=== PATIENT | male | born 1980 | race Caucasian/White ===

== ENCOUNTER 2017-06-09 06:27 | Day surgery (SDC) | payer OTHER, SELFPAY ==
[2017-06-09 07:23] VITALS: BP 129/84; PULSE 72; RESP 14; TEMP 36; O2SAT 100; BMI 25.8
--- NOTE | 2017-06-09 07:59 | PCM.DC ---
You will use the following diet at home:: No restrictions Discharge Activity: Return to Normal Activity Call your doctor if your incision/area has: Increased Pain/ Swelling Allergies/Adverse Reactions: Allergies No Known Allergies Allergy (Verified 06/03/17 15:37) Medications to take at Discharge Dextroamphetamine/Amphetamine [Adderall 5 mg Tablet] 5 mg PO DAILY 06/03/17 Cephalexin [Keflex] 500 mg PO BID #6 cap 06/09/17 The following prescriptions were given: Cephalexin [Keflex] 500 mg PO BID #6 cap Primary Care Physician: Jamila Duran,Out of [Primary Care Provider] - Please Follow Up With: Herber Veliz MD When: PRN
--- NOTE | 2017-06-09 08:00 | LIP_PTH ---
PATIENT: FALLON PANCHAL LOC: [facility] [place] U#:[id number] AGE/SX: 36/M ROOM: RE06/09/[address]: Dr. Neo Veliz MD : 1980 BED: DIS: 06/09/2017 SPEC #: [id number] RECD: 06/09/17 10:09 STATUS: TERRA ROSALINDA #: [id number] [place]: 06/09/17 08:[address]: Neo Veliz DEPT: SURGICAL PATHOLOGY RECD BY: Heri Cabrera ENTERED: 06/09/17 10:58 SP TYPE: LIPOMA OT DR: Out of [facility] Doctor Tissues: Soft tissues, NOS Procedures: Surgery Specimen Level III HEADER OPERATION: Excision left frontal lipoma PRE-OP DIAGNOSIS: Left frontal lipoma TISSUE SUBMITTED: Left frontal lipoma MICROSCOPIC DIAGNOSIS Soft tissue mass, left frontal region, excision: Mature adipose tissue consistent with lipoma. AM:feng 06/10/17 MICROSCOPIC DESCRIPTION Slides are reviewed. GROSS DESCRIPTION Received in fixative is one container labeled with the patient's name and designated left frontal lipoma. The specimen consists of a piece of yellow adipose tissue measuring 1.1 x 1.1 x 0.6 cm. The specimen is inked, bisected and submitted entirely in one cassette. / SJ:rg 06/09/17 TC:1 CPT: 24194
--- NOTE | 2017-06-09 08:01 | PCM.OPRPT ---
Problem List (1) Localized skin mass, lump, or swelling Status: Chronic Report of Operation Date of Procedure: 06/09/17 Pre-Operative Diagnosis: left forehead mass Post-Operative Diagnosis: left forehead mass Surgery/Procedure Performed:: excision left forehead mass Type of Anesthesia:: Local MAC Drains: none Estimated Blood Loss (mL): 1cc Description of Procedure: on the day of the procedure, after appropriate informed consent was obtained, the patient was brought to the operating room and placed in supine position on the operating table. the left forehead was prepped and draped in sterile fashion. he was placed under IV sedation, and his left frontal region was injected with lidocaine/epinephrine. a 1cm incision was made in a left frontal crease with a [place] blade and the subcutaneous fat was encountered. a subcutaneous mass consistent with lipoma was readily encountered. this was circumferentially dissected and removed. the distal left branches of the frontal nerve were preserved. the incision was irrigated and closed with 4-0 PDS and 5-0 monocryl. the patient was awoken from anesthesia and transferred to the PACU in stable condition. Grafts/Implants Used: none - Admit VTE Documentation VTE Pharm Prophylaxis ordered?: No Reason prophylaxis not ordered:: Treatment Not Indicated
--- NOTE | 2017-06-09 08:07 | OP.PCM_ITS ---
Problem List (1) Localized skin mass, lump, or swelling Status: Chronic Report of Operation Date of Procedure: 06/09/17 Pre-Operative Diagnosis: left forehead mass Post-Operative Diagnosis: left forehead mass Surgery/Procedure Performed:: excision left forehead mass Type of Anesthesia:: Local MAC Drains: none Estimated Blood Loss (mL): 1cc Description of Procedure: on the day of the procedure, after appropriate informed consent was obtained, the patient was brought to the operating room and placed in supine position on the operating table. the left forehead was prepped and draped in sterile fashion. he was placed under IV sedation, and his left frontal region was injected with lidocaine/epinephrine. a 1cm incision was made in a left frontal crease with a [place] blade and the subcutaneous fat was encountered. a subcutaneous mass consistent with lipoma was readily encountered. this was circumferentially dissected and removed. the distal left branches of the frontal nerve were preserved. the incision was irrigated and closed with 4-0 PDS and 5-0 monocryl. the patient was awoken from anesthesia and transferred to the PACU in stable condition. Grafts/Implants Used: none - Admit VTE Documentation VTE Pharm Prophylaxis ordered?: No Reason prophylaxis not ordered:: Treatment Not Indicated
[2017-06-09] MEDS: Mupirocin Ointment 22gm Tube 1 APPLIC (08:34)
[2017-06-09 09:08] VITALS: BP 121/83; BP 129/84; PULSE 69; RESP 18; TEMP 36.4; O2SAT 100
[2017-06-09 09:15] VITALS: BP 128/83; BP 129/84; PULSE 68; RESP 18; O2SAT 100
[2017-06-09 09:20] VITALS: BP 124/89; BP 129/84; PULSE 65; RESP 18; O2SAT 98
[2017-06-09 09:24] VITALS: BP 123/92; BP 129/84; PULSE 68; RESP 18; TEMP 36.4; O2SAT 100
[2017-06-09 09:57] VITALS: BP 129/84
== END 2017-06-09 09:59 | disposition home or self-care (01) ==
LOC: SDC 06:28 → AC 06:29
PROVIDERS: Visit Provider Otolaryngology
PROC: (CPT 11441; principal; 2017-06-09 07:50)
DX: D17.0 Benign lipomatous neoplasm of skin and subcutaneous tissue of head, face and neck (principal); Z87.891 Personal history of nicotine dependence
CPT/HCPCS: 11441; 88304; J7120